=== PATIENT | male | born 1945 | race Caucasian/White ===

== ENCOUNTER 2020-10-20 19:33 | Emergency (ER) | payer OTHER ==
[~2020-10-20] VITALS: Ht 177.8 cm; Wt 93.0 kg
--- NOTE | 2020-10-20 19:54 | NUR ---
BIBS FROM HOME TO ER CH1. AAOX4. NOT IN RESP DISTRESS, BREATHING EVEN AND UNLABORED. AMBULATORY. CAME IN FOR ACCIDENTAL INGESTION OF 5PILL OF OXYCODONE 5MG TOTAL OF 25MG AT AROUND 1900 PER PT. PT IS SATTING @ 98% ON RA. NO CHANGE IN MENTATION. PT PLACED ON MONITOR. MD WAS AT THE BEDSIDE FOR EVAL.
[2020-10-20] MEDS ORDERED: ONDANSETRON 4 MG TAB.RAPDIS ONE (20:21)
--- NOTE | 2020-10-20 20:22 | NUR ---
PT IS AMBULATORY ON STEADY GAIT UPON TESTING. NO RESP DISTRESS. SATTING @ 97%. PT VERBALIZED THAT HE IS NAUSEAOUS, MADE AWARE AND OBTAINED AN ORDER FOR ZOFRAN 4MG SL X 1. ORDER NOTED AND CARRIED OUT.
[2020-10-20 20:24] VITALS: BP 119/76
[2020-10-20] MEDS ORDERED: ONDANSETRON 4 MG TAB.RAPDIS SL ONE (20:30)
== END 2020-10-20 20:24 | disposition home or self-care (01) ==
LOC: ER 19:36
DX: T40.2X1A Poisoning by other opioids, accidental (unintentional), initial encounter (principal); Z95.0 Presence of cardiac pacemaker; Y92.89 Other specified places as the place of occurrence of the external cause
CPT/HCPCS: 99283; Q0162

== ENCOUNTER 2021-06-08 19:59 | Inpatient (IN) | payer MEDICARE, OTHER ==
[~2021-06-08] VITALS: Ht 177.8 cm; Wt 98.0 kg
[2021-06-08] MEDS ORDERED: IV NS 0.9% 1,000 ML BAG IV ONE (20:30)
[2021-06-08] MEDS ORDERED: ONDANSETRON HCL/PF 4 MG/2 ML VIAL IVP ONE (20:30)
[2021-06-08] MEDS ORDERED: ONDANSETRON HCL/PF 4 MG/2 ML VIAL ONE (20:37)
--- NOTE | 2021-06-08 20:49 | NUR ---
MARY FROM HOME TO ER BED 6. AAOX4. NOT IN RESP DISTRESS, BREATHING EVEN AND UNLABORED. BROUGHT IN FOR FOR DIFFUSED ABD PAIN AND DIARRHEA WHICH STARTED THIS NOON. PAIN 8/10 CRAMPING SHOOTING. MD WAS AT THE BEDSIDE FOR EVAL.ORDERS RECEIVED NOTED AND CARRIED OUT IV LINE ESTABLISHED ON THE L HAND 20G, BLOOD DRAWN AND GIVEN TO PHLEB AT BEDSIDE.
--- NOTE | 2021-06-08 20:56 | NUR ---
LAB CALLED REGARDING HGB-5.7, HCT-17. RICHI GUERRA MADE AWARE.
[2021-06-08 21:09] LABS: BILIRUBIN,URINE Negative (NEGATIVE); COLOR,URINE YELLOW (YELLOW); LEUKOCYTE ESTERASE ,URINE Negative (NEGATIVE); NITRITE, URINE Negative (NEGATIVE); PROTEIN,URINE Trace mg/dl (NEGATIVE); UGLUCOSE Negative (NEGATIVE); UROBILINOGEN,URINE 0.2 EU/dL (0.2)
--- NOTE | 2021-06-08 21:17 | NUR ---
COVID SWAB COLLECTED AND SENT TO LAB
[2021-06-08 21:26] LABS: NEUTROPHILS % (MANUAL) 86 (42-76)
[2021-06-08 21:27] LABS: LYMPHOCYTES % (MANUAL) 6 % (16-48); METAMYELOCYTES % 2 % (0-0); MONOCYTES % (MANUAL) 5 % (0-11.0); MYELOCYTES % 1 % (0-0)
--- NOTE | 2021-06-08 21:28 | NUR ---
PATIENT SIGNED CONSENT FOR BLOOD TRANSFUSION.
[2021-06-08] MEDS ORDERED: IOHEXOL-350 100 ML VIAL IV ONE (21:35)
[2021-06-08] MEDS ORDERED: IV NS 0.9% 250 ML IV ONE (21:36)
[2021-06-08 21:40] LABS: BACTERIA,URINE Rare /HPF (None Seen); RBC,URINE NONE SEEN /HPF (0-2); SQUAMOUS EPITHELIAL CELL,UR Few /HPF (None Seen); WBC,URINE NONE SEEN /HPF (0-3)
--- NOTE | 2021-06-08 21:43 | NUR ---
BUDDY GEORGES [phone] ().
--- NOTE | 2021-06-08 21:58 | NUR ---
PT SALMA PALACIOS UPDATED.
[2021-06-08 22:15] LABS: HEMOGLOBIN 14.7 g/dL (13.5-17.5); RED BLOOD CELL COUNT(AUTO) 4.68 MIL/uL (4.5-6.0); WHITE BLOOD COUNT (AUTO) 9.5 K/uL (4.3-11.0)
[2021-06-08 22:16] LABS: EOSINOPHILS % (AUTO) 0.8 % (0.0-6.0); HEMATOCRIT 43 % (39-51); LYMPHOCYTES % (AUTO) 9.2 % (20.0-44.0); MEAN CORPUSCULAR HGB CONC 35 g/dl (31.0-36.0); MEAN CORPUSCULAR VOLUME 91 fL (80-96); MONOCYTES % (AUTO) 5.4 % (2.0-12.0); NEUTROPHILS % (AUTO) 84.4 % (43.0-81.0); PLATELET COUNT (AUTO) 151 K/uL (150-450)
[2021-06-08 22:17] LABS: BASOPHILS % (AUTO) 0.2 % (0.0-2.0); LYMPHOCYTES # (AUTO) 0.9 K/uL (0.8-4.8); MONOCYTES # (AUTO) 0.5 K/uL (0.1-1.30)
[2021-06-08 22:20] LABS: ALBUMIN 3.8 g/dL (3.4-5.0); BILIRUBIN,DIRECT 0.1 mg/dL (0.0-0.2); BILIRUBIN,TOTAL 0.6 mg/dL (0.2-1.0); CALCIUM, SERUM 8.7 mg/dL (8.5-10.1); CREATININE 0.9 mg/dL (0.6-1.3); POTASSIUM 4.5 mmol/L (3.5-5.1); TOTAL PROTEIN, SERUM 6.8 g/dL (6.4-8.2)
--- NOTE | 2021-06-08 22:26 | NUR ---
REPEAT BLOOD DRAW DONE AND LAB REPORTED THAT INITIAL LAB RESULT WAS AN ERROR AND REPORTED DIRECTLY TO DR HART WELL. ORDERED TO HOLD THE BLOOD TRANSFUSION. WILL STILL CONTINUE TO DO THE CT SCAN.
[2021-06-08] MEDS ORDERED: CEFTRIAXONE 1 G in IV D5W 50 ML IV ONE (22:30)
[2021-06-08] MEDS ORDERED: PANTOPRAZOLE 40 MG VIAL IV ONE (22:30)
[2021-06-08] MEDS ORDERED: PANTOPRAZOLE 40 MG VIAL ONE (22:33)
--- NOTE | 2021-06-08 23:33 | NUR ---
PT SONS REUPDATED REGARDING PT'S LAB RESULT.
[2021-06-09] MEDS ORDERED: MAG HYDROX/AL HYDROX/SIMETH 30 ML UDC PO ONE
[2021-06-09] MEDS ORDERED: LIDOCAINE VISCOUS 2% UD 15 ML UDC MM ONE
[2021-06-09] MEDS ORDERED: MORPHINE SULFATE INJ 2 MG/ML DISP.SYRIN ONE (00:04)
[2021-06-09] MEDS ORDERED: ONDANSETRON HCL/PF 4 MG/2 ML VIAL IVP PRN ×2 (00:30→00:45)
[2021-06-09] MEDS ORDERED: ZOLPIDEM TARTRATE 5 MG TABLET PO PRN ×2 (00:30→00:45)
[2021-06-09] MEDS ORDERED: Z GUARD REMEDY 2 OZ OINT TP PRN ×2 (00:30→00:45)
[2021-06-09] MEDS ORDERED: IV NS 0.9% 1,000 ML IV ONE ×2 (00:30→00:45)
[2021-06-09] MEDS ORDERED: MAG HYDROX/AL HYDROX/SIMETH 30 ML UDC PO PRN ×2 (00:30→00:45)
[2021-06-09] MEDS ORDERED: ACETAMINOPHEN 325 MG TABLET PO PRN ×2 (00:30→00:45)
[2021-06-09] MEDS ORDERED: MORPHINE SULFATE INJ 2 MG/ML DISP.SYRIN IV ONE ×2 (00:30)
--- NOTE | 2021-06-09 00:32 | NUR ---
M/S 308-2
--- NOTE | 2021-06-09 00:50 | NUR ---
REPORT CALLED TO M/S [facility] HARMON. WILL TRANSPORT PT TO ROOM 308-2
[2021-06-09] MEDS ORDERED: MORPHINE SULFATE INJ 2 MG/ML DISP.SYRIN IV PRN ×2 (01:00)
[2021-06-09 01:15] VITALS: BP 140/67
--- NOTE | 2021-06-09 01:15 | NUR ---
MS AUTO APPRENTICE MECHANIC NOTE PT TRANSPORTED VIA GURNEY TO UNIT AT THIS TIME. PT ADMITTED TO MED SURG UNDER DR. MALDONADO FOR ADMITTING DX OF GASTROENTERITIS. A/O X4. PT IS STABLE ON ROOM AIR. NO SOB OR S/S OF RESPIRATORY DISTRESS NOTED. PT DENIES PAIN OR DISCOMFORT AT THIS TIME. IV ACCESS IN LEFT HAND #20 AND RFA #20, INTACT AND PATENT. SKIN IS INTACT. PT ORIENTED TO STAFF, ROOM, AND UNIT. SAFETY PRECAUTIONS MAINTAINED. BED IN LOWEST LOCKED POSITION, HOB ELEVATED, SIDE RAILS UP X2. CALL LIGHT AND TABLE WITHIN REACH. WILL CONTINUE TO MONITOR.
--- NOTE | 2021-06-09 06:13 | NUR ---
RN NOTE - NPO CONFIRMED ORDER FROM DR. MALDONADO TO KEEP PT NPO. PT HAS BEEN NPO SINCE MIDNIGHT. ORDERS READ BACK AND CARRIED OUT. WILL CONTINUE WITH PLAN OF CARE.
--- NOTE | 2021-06-09 06:17 | NUR ---
MS RN CLOSING NOTE PT IS AWAKE IN BED. A/O X4. PT IS STABLE ON ROOM AIR. NO SOB OR S/S OF RESPIRATORY DISTRESS NOTED. PT DENIES PAIN OR DISCOMFORT AT THIS TIME. IV ACCESS IS INTACT, PATENT, AND FLUSHING WELL. PT KEPT NPO SINCE MIDNIGHT. ALL NEEDS HAVE BEEN MET. SAFETY PRECAUTIONS MAINTAINED AT ALL TIMES. BED IN LOWEST LOCKED POSITION, HOB ELEVATED, SIDE RAILS UP X2. CALL LIGHT AND TABLE WITHIN REACH. WILL ENDORSE TO ONCOMING NURSE FOR JAS.
[2021-06-09 08:00] VITALS: BP 112/64
[2021-06-09] MEDS ORDERED: PARO20TA7 PO (08:00)
[2021-06-09] MEDS ORDERED: GABA-532 PO (08:00)
[2021-06-09] MEDS ORDERED: PRAM0.253 PO (08:00)
[2021-06-09] MEDS ORDERED: CIPROFLOXACIN HCL 250 MG TABLET PO SCH (10:47)
[2021-06-09] MEDS: METRONIDAZOLE 500MG/ NS 100ML 500 MG in PREMIX 1 EA IV SCH ×2 (13:06→21:30)
[2021-06-09 16:00] VITALS: BP 110/62
--- NOTE | 2021-06-09 18:00 | NUR ---
STOOL SENT FOR C-DIFF AND OVA AND PARASITES.
--- NOTE | 2021-06-09 19:51 | NUR ---
MS OTT Opening Notes Patient was last seen awake in bed resting. Patient's alert and oriented x4. Patient's stable on room air. Juliane has IV accesses on his left hand #20 and right forearm #20. Patient's in no acute distress at this time. Safety measures in place: Bed locked, side rails upx3, and call light within reach of the patient. Will continue to monitor the patient. Addendum: 06/09/21 at 8 by MITCH HA RN Bed alarm on
[2021-06-09 20:00] VITALS: BP 138/70
[2021-06-09] MEDS: CIPROFLOXACIN HCL 250 MG TABLET PO SCH (21:30)
[2021-06-09] MEDS: PRAMIPEXOLE DI-HCL 0.25 MG TABLET PO SCH (21:31)
--- NOTE | 2021-06-09 23:01 | NUR ---
MS RN Notes Endorsed care to Nurse Mikayla. Patient's in no acute distress at this time.
[2021-06-10] MEDS: METRONIDAZOLE 500MG/ NS 100ML 500 MG in PREMIX 1 EA IV SCH ×3 (04:01→21:32)
[2021-06-10 06:18] LABS: CALCIUM, SERUM 7.9 mg/dL (8.5-10.1); MAGNESIUM 1.9 mg/dL (1.8-2.4); PHOSPHORUS 2.6 mg/dL (2.5-4.9)
[2021-06-10 06:30] LABS: BASOPHILS % (AUTO) 0.1 % (0.0-2.0); EOSINOPHILS % (AUTO) 3.7 % (0.0-6.0); HEMATOCRIT 36 % (39-51); HEMOGLOBIN 12.6 g/dL (13.5-17.5); LYMPHOCYTES # (AUTO) 1.3 K/uL (0.8-4.8); LYMPHOCYTES % (AUTO) 29.6 % (20.0-44.0); MEAN CORPUSCULAR HGB CONC 35 g/dl (31.0-36.0); MEAN CORPUSCULAR VOLUME 91 fL (80-96); MONOCYTES # (AUTO) 0.4 K/uL (0.1-1.30); MONOCYTES % (AUTO) 8.4 % (2.0-12.0); NEUTROPHILS # (AUTO) 2.5 K/uL (1.8-8.9); NEUTROPHILS % (AUTO) 58.2 % (43.0-81.0); PLATELET COUNT (AUTO) 136 K/uL (150-450); RED BLOOD CELL COUNT(AUTO) 3.95 MIL/uL (4.5-6.0); WHITE BLOOD COUNT (AUTO) 4.3 K/uL (4.3-11.0)
--- NOTE | 2021-06-10 06:47 | NUR ---
RN NOTES Patient awake in bed resting. Patient's alert and oriented x4. Patient's stable on room air. Patient has IV accesses on his left hand #20 and right forearm #20. Patient's in no acute distress at this time. Safety measures in place: Bed locked, side rails upx3, and call light within reach of the patient. Will endorse care to day shift nurse.
--- NOTE | 2021-06-10 07:22 | NUR ---
MS RN OPENING NOTE RECEIVED PATIENT RESTING IN BED. PATIENT IS A/O X4. PATIENT BREATHING EVENLY AND NONLABORED. PT IS STABLE ON ROOM AIR. NO SOB OR S/S OF RESPIRATORY DISTRESS NOTED. PT DENIES PAIN OR DISCOMFORT AT THIS TIME. IV ACCESS IN LEFT HAND #20 AND RFA #20, INTACT AND PATENT. SKIN IS INTACT. SAFETY PRECAUTIONS MAINTAINED. BED IN LOWEST LOCKED POSITION, HOB ELEVATED, SIDE RAILS UP X2. CALL LIGHT AND TABLE WITHIN REACH. WILL CONTINUE TO MONITOR.
[2021-06-10 08:00] VITALS: BP 123/67
[2021-06-10] MEDS: GABAPENTIN 100 MG CAPSULE PO SCH ×3 (08:11→16:02)
[2021-06-10] MEDS: PAROXETINE HCL 20 MG TABLET PO SCH (08:12)
[2021-06-10] MEDS: CIPROFLOXACIN HCL 250 MG TABLET PO SCH ×2 (08:12→21:32)
[2021-06-10 16:00] VITALS: BP 143/78
--- NOTE | 2021-06-10 18:45 | NUR ---
MS RN CLOSING NOTE PATIENT RESTING IN BED. PATIENT IS A/O X4. PATIENT BREATHING EVENLY AND NONLABORED. PT IS STABLE ON ROOM AIR. NO SOB OR S/S OF RESPIRATORY DISTRESS NOTED. PT DENIES PAIN OR DISCOMFORT AT THIS TIME. IV ACCESS IN LEFT HAND #20 AND RFA #20, INTACT AND PATENT. SKIN IS INTACT. ALL MEDICATIONS GIVEN ORDERED. SAFETY PRECAUTIONS MAINTAINED. BED IN LOWEST LOCKED POSITION, HOB ELEVATED, SIDE RAILS UP X2. CALL LIGHT AND TABLE WITHIN REACH. WILL ENDORSE TO ONCOMING SHIFT
--- NOTE | 2021-06-10 19:30 | NUR ---
RN NOTE RECEIVED PATIENT IN BED. A/OX4. TOLERATING ROOM AIR . RESPIRATIONS ARE EVEN AND UNLABORED. NO S/S SOB NOTED. NO C/O PAIN AT THIS TIME. IN NO APPARENT DISTRESS. IV ACCESS IN RFA REDDEND AND INFILTRATED., REMOVED, IV IN LEFT HAND IS TENDER, REMOVED. INFORMED PATIENT WILL PLACE A NEW IV ACCES. BED IS LOW AND LOCKED, HOB ELEVATED IN SEMI FOWLERS, SIDE RAILS UP X2, CALL LIGHT WITHIN REACH. WILL CONTINUE TO MONITOR THROUGHOUT SHIFT.
[2021-06-10 20:00] VITALS: BP 126/72
[2021-06-10] MEDS: PRAMIPEXOLE DI-HCL 0.25 MG TABLET PO SCH ×2 (21:32→21:39)
--- NOTE | 2021-06-10 21:39 | NUR ---
RN NOTE DID NOT ADMINISTER PRAMINPEXOLE 0.75MG D/T PATIENT TOOK HIS OWN PILLS. REMOVED PATIENTS PILLS FROM BEDSIDE AND PLACED IN PHARMACY BAG. WILL GIVE TO PHARMACY IN AM.
[2021-06-11] MEDS: METRONIDAZOLE 500MG/ NS 100ML 500 MG in PREMIX 1 EA IV SCH ×2 (05:12→12:59)
[2021-06-11 06:23] LABS: BASOPHILS % (AUTO) 0.5 % (0.0-2.0); EOSINOPHILS % (AUTO) 4.3 % (0.0-6.0); HEMATOCRIT 37 % (39-51); LYMPHOCYTES # (AUTO) 1.2 K/uL (0.8-4.8); LYMPHOCYTES % (AUTO) 30.7 % (20.0-44.0); MEAN CORPUSCULAR HGB CONC 35 g/dl (31.0-36.0); MEAN CORPUSCULAR VOLUME 90 fL (80-96); MONOCYTES # (AUTO) 0.3 K/uL (0.1-1.30); MONOCYTES % (AUTO) 8.3 % (2.0-12.0); NEUTROPHILS # (AUTO) 2.3 K/uL (1.8-8.9); NEUTROPHILS % (AUTO) 56.2 % (43.0-81.0); PLATELET COUNT (AUTO) 147 K/uL (150-450)
[2021-06-11 06:32] LABS: CALCIUM, SERUM 8.4 mg/dL (8.5-10.1); MAGNESIUM 1.9 mg/dL (1.8-2.4); PHOSPHORUS 3.6 mg/dL (2.5-4.9); POTASSIUM 3.9 mmol/L (3.5-5.1)
--- NOTE | 2021-06-11 06:52 | NUR ---
RN NOTE PATIENT RESTING IN BED. A/OX4. NO RESP DISTRESS. NO PAIN. NO DISTRESS. IV IN RIGHT HAND #20. BED REMAINS LOW AND LOCKED, HOB ELEVATED IN SEMI FOWLERS, SIDE RAILS UP X2, CALL LIGHT WITHIN REACH. WILL ENDORSE TO ONCOMING SHIFT.
--- NOTE | 2021-06-11 08:00 | NUR ---
m/s optical goods drill operator: initial assessment received pt in bed awake, a/x4. no c/o n/v/d at this time. pt tolerated full liquid and will advance diet as tolerated. instructed to call for assistance. will continue to monitor.
[2021-06-11] MEDS: GABAPENTIN 100 MG CAPSULE PO SCH ×2 (08:13→13:24)
[2021-06-11] MEDS: PAROXETINE HCL 20 MG TABLET PO SCH (08:13)
[2021-06-11] MEDS: CIPROFLOXACIN HCL 250 MG TABLET PO SCH (08:13)
[2021-06-11 08:22] VITALS: BP 142/72
--- NOTE | 2021-06-11 11:00 | NUR ---
m/s telecine operator: md visit seen and examined by tina gutierrez (acnp) and pt for d'c home with po antibiotics. all questions and concerns answered by corporate specialist.
--- NOTE | 2021-06-11 13:38 | NUR ---
m/s childcare center director: notes received d'c home order with instructions. order acknowledged. pt just finishing his iv antibiotic and will call someone to pick him up.
[2021-06-11] MEDS ORDERED: METR500T PO (14:03)
[2021-06-11] MEDS ORDERED: CIPR250T4 PO (14:03)
--- NOTE | 2021-06-11 14:35 | NUR ---
m/s roofing sales representative: notes discharge instructions with e script given to pt and verbalized understanding. h/l removed with tip intact. friend here and will bring him home.
--- NOTE | 2021-06-11 14:45 | NUR ---
m/s aircraft rigging and controls mechanic: discharge discharge home in stable condition accompanied by friend via private car with all valuables.
== END 2021-06-11 14:50 | disposition home or self-care (01) | DRG 392 ==
LOC: ER 20:01 → TELE 06-09 00:57 → MED 06-09 01:35
PROVIDERS: ADMIT Registered Nurse; ATTEND Registered Nurse
DX: A09 Infectious gastroenteritis and colitis, unspecified (principal); G25.81 Restless legs syndrome; F43.10 Post-traumatic stress disorder, unspecified; F41.9 Anxiety disorder, unspecified; I25.10 Atherosclerotic heart disease of native coronary artery without angina pectoris; K76.0 Fatty (change of) liver, not elsewhere classified; Z95.0 Presence of cardiac pacemaker; E66.9 Obesity, unspecified; K44.9 Diaphragmatic hernia without obstruction or gangrene; Z20.822 Contact with and (suspected) exposure to COVID-19; Z68.31 Body mass index [BMI] 31.0-31.9, adult; Z71.3 Dietary counseling and surveillance; F19.11 Other psychoactive substance abuse, in remission; Z87.891 Personal history of nicotine dependence
CPT/HCPCS: 36415; 76705-TC; 80048-TC; 80076-TC; 81001; 83690-TC; 83735-TC; 84100-TC; 84484-TC; 85025-TC; 86850-TC; 87081-TC; 87177; 87209; A4216; C9113; C9803; G0378; G0480; J0696; J2270; J2405; J7030; J7050; J7060; Q9967

== ENCOUNTER 2022-07-16 15:25 | Emergency (ER) | payer MEDICARE, OTHER ==
[~2022-07-16] VITALS: Ht 177.8 cm; Wt 90.7 kg
[~2022-07-16 15:25] MED LIST: CIPR250T4 PO; GABA-532 PO; METR500T PO; PARO20TA7 PO; PRAM0.253 PO
[2022-07-16] MEDS ORDERED: MORPHINE SULFATE INJ 2 MG/ML DISP.SYRIN IV ONE (17:00)
[2022-07-16] MEDS ORDERED: IV NS 0.9% 1,000 ML BAG IV ONE (17:00)
[2022-07-16 17:14] LABS: BILIRUBIN,URINE NEGATIVE (NEGATIVE); COLOR,URINE YELLOW (YELLOW); LEUKOCYTE ESTERASE ,URINE SMALL (NEGATIVE); NITRITE, URINE NEGATIVE (NEGATIVE); PH,URINE 6.5 (5.0-8.0); PROTEIN,URINE 100 mg/dl (NEGATIVE); UGLUCOSE NEGATIVE (NEGATIVE)
[2022-07-16 17:35] LABS: BASOPHILS % (AUTO) 0.4 % (0.0-2.0); EOSINOPHILS % (AUTO) 0.2 % (0.0-6.0); HEMATOCRIT 43 % (39-51); HEMOGLOBIN 14.3 g/dL (13.5-17.5); LYMPHOCYTES % (AUTO) 10.6 % (20.0-44.0); MEAN CORPUSCULAR HGB CONC 34 g/dl (31.0-36.0); MEAN CORPUSCULAR VOLUME 91 fL (80-96); MONOCYTES # (AUTO) 0.3 K/uL (0.1-1.30); MONOCYTES % (AUTO) 3.5 % (2.0-12.0); NEUTROPHILS % (AUTO) 85.3 % (43.0-81.0); PLATELET COUNT (AUTO) 124 K/uL (150-450); RED BLOOD CELL COUNT(AUTO) 4.66 MIL/uL (4.5-6.0); WHITE BLOOD COUNT (AUTO) 9.4 K/uL (4.3-11.0)
[2022-07-16 17:57] LABS: ALBUMIN 3.7 g/dL (3.4-5.0); BILIRUBIN,DIRECT 0.3 mg/dL (0.0-0.2); BILIRUBIN,TOTAL 1.5 mg/dL (0.2-1.0); CALCIUM, SERUM 9.2 mg/dL (8.5-10.1); TOTAL PROTEIN, SERUM 6.8 g/dL (6.4-8.2)
[2022-07-16 18:23] LABS: CREATININE 1.3 mg/dL (0.6-1.3)
[2022-07-16 18:31] LABS: BACTERIA,URINE 2+ /HPF (None Seen); RBC,URINE 51-80 /HPF (0-2); SQUAMOUS EPITHELIAL CELL,UR 0-2 /HPF (None Seen); WBC,URINE 21-50 /HPF (0-3)
[2022-07-16] MEDS ORDERED: CEFTRIAXONE 1GM BAG (ER ONLY) 1 GM/50 ML PIGGYBACK IV ONE (19:00)
[2022-07-16] MEDS ORDERED: CEFTRIAXONE 1GM BAG (ER ONLY) 50 ML IV ONE (19:39)
--- NOTE | 2022-07-16 19:40 | NUR ---
ADDENDUM: Intravenous End Time Documentation: Rocephin 1 gram IVPB: start time: 1939 pm ; end time: 2009 pm IV site: PIV # 20 Port # 1
--- NOTE | 2022-07-16 19:44 | NUR ---
RECEIVED PT IN ROOM 4, PT IS ALERT AND ORIENTED. RESTING COMFORTABLY IN BED. DENIES ANY DISCOMFORT AT THIS TIME. IV LINE NOTED ON [id number], PATENT AND INTACT. WILL CONTINUE TO MONITOR
[2022-07-16] MEDS ORDERED: CEFP200T14 PO ×2 (19:57→21:14)
--- NOTE | 2022-07-16 20:06 | NUR ---
PT AMBULATED TO BATHROOM. STEADY GAIT NOTED
--- NOTE | 2022-07-16 20:11 | NUR ---
IV removed. Catheter intact and site benign. Pressure and 4x4 applied to site. No bleeding noted.
--- NOTE | 2022-07-16 20:11 | NUR ---
Patient discharged to home in stable condition. Written and verbal after care instructions given. Patient verbalizes understanding of instruction.
[2022-07-16 20:17] VITALS: BP 168/77
== END 2022-07-16 20:17 | disposition home or self-care (01) ==
LOC: ER 15:39
DX: N39.0 Urinary tract infection, site not specified (principal); N12 Tubulo-interstitial nephritis, not specified as acute or chronic; F41.9 Anxiety disorder, unspecified; Z79.899 Other long term (current) drug therapy
CPT/HCPCS: 99284; 74176; 96365; 96361; 85025; 80048; 87077; 87086; 83690; 80076; 87186; 81001; 36415; J7030; J0696